=== PATIENT | female | born 2000 | race Caucasian/White ===

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

== ENCOUNTER 2018-05-23 20:47 | Emergency (ER) | payer MEDICAID | END 2018-05-23 22:57 | LOC: JD.ED 20:47 | DX: Z53.21 Procedure and treatment not carried out due to patient leaving prior to being seen by health care provider (principal) ==

== ENCOUNTER 2021-02-19 01:31 | Emergency (ER) | payer MEDICAID ==
[2021-02-19 01:44] VITALS: BP 109/64; PULSE 83
--- NOTE | 2021-02-19 02:32 | EDM.PDOC ---
ED HPI GENERAL MEDICAL PROBLEM - General Chief Complaint: ADMINISTRATIVE FELLOW Problem Stated Complaint: VAGINAL BLEEDING/17WEEK PREG Time Seen by Provider: 02/19/21 01:50 Source of Information: Reports: Patient History Limitations: Reports: No Limitations - History of Present Illness INITIAL COMMENTS - FREE TEXT/NARRATIVE: Patient is a 20-year-old female no significant past medical history presents with a chief complaint of vaginal bleeding. Patient states that she is approximately 17 weeks . She does have prior ADMINISTRATIVE FELLOW visits and care. States everything in the has been going well. About 1 hour ago, patient was watching TV when she went to the bathroom and had some vaginal bleeding. Patient states she passed several clots. Otherwise, she has minimal other symptoms. Denies any cramping or pain. Has been feeling nauseous during the entire but no vomiting tonight. Otherwise, patient feels well. Patient did have a miscarriage earlier this year around 8 weeks of her and is concerned that she might be having another one. - Related Data Allergies Allergy/AdvReac Type Severity Reaction Status Date / Time Penicillins Allergy Intermediate Rash Verified 02/19/21 01:44 latex Allergy Hives Verified 02/19/21 01:44 morphine AdvReac Headache Verified 02/19/21 01:44 Home Meds: Home Meds Ondansetron [Ondansetron ODT] 4 mg PO Q6H PRN 02/19/21 [History] Past Medical History HEENT History: Reports: Other (See Below) Other HEENT History: Glasses Cardiovascular History: Reports: None Respiratory History: Reports: Other (See Below) Other Respiratory History: seasonal allergies Gastrointestinal History: Reports: GERD Other Gastrointestinal History: acid reflux Genitourinary History: Reports: Other (See Below) Other Genitourinary History: UTI x 1 this ADMINISTRATIVE FELLOW History: Reports: Musculoskeletal History: Reports: Other (See Below) Other Musculoskeletal History: LBP Neurological History: Reports: Seizure Other Neuro History: seizure x 1 at 5 y.o. Psychiatric History: Reports: Anxiety Other Psychiatric History: Took medication prior to for both; not during , no current s/s of either per pt. Endocrine/Metabolic History: Reports: None Hematologic History: Reports: None Immunologic History: Reports: None Oncologic (Cancer) History: Reports: None Dermatologic History: Reports: Psoriasis Other Dermatologic History: arms and belly - Infectious Disease History Infectious Disease History: Reports: None - Past Surgical History Head Surgeries/Procedures: Reports: None HEENT Surgical History: Reports: Oral Surgery Cardiovascular Surgical History: Reports: None GI Surgical History: Reports: Appendectomy Female Surgical History: Reports: None Endocrine Surgical History: Reports: None Neurological Surgical History: Reports: None Musculoskeletal Surgical History: Reports: None Oncologic Surgical History: Reports: None Dermatological Surgical History: Reports: None Social & Family History - Family History Family Medical History: No Pertinent Family History - Tobacco Use Tobacco Use Status *Q: Never Tobacco User Second Hand Smoke Exposure: No - Caffeine Use Caffeine Use: Reports: Coffee - Recreational Drug Use Recreational Drug Use: No - Living Situation & Occupation Living situation: Reports: with Family Occupation: Student ED ROS GENERAL - Review of Systems Review Of Systems: See Below Free Text/Narrative/Comment: In addition to that documented in the HPI above, the additional ROS was obtained: Constitutional: Denies fevers or chills Eyes: Denies vision changes ENMT: Denies sore throat CV: Denies chest pain Resp: Denies SOB GI: Denies vomiting or diarrhea : Denies painful urination MSK: Denies recent trauma Skin: Denies new rashes Neuro: Denies new numbness or tingling or weakness Endocrine: Denies unexpected weight loss Heme: Denies bleeding disorders ED EXAM - Physical Exam Exam: See Below Text/Narrative:: I have reviewed the triage vital signs Const: Well nourished, well developed, appears stated age Eyes: Pupils Equal and reactive to light bilaterally, no conjunctival injection HENT: No signs of trauma or swelling, Neck supple without meningismus CV: Regular Rate Rhythm, Warm, well-perfused extremities RESP: Unlabored respiratory effort GI: Uterus palpated in the infraumbilical area. Soft, non-tender, non- distended, no masses MSK: No gross deformities appreciated Skin: Warm, dry. No rashes Neuro: Alert, activities manager II-XII grossly intact. Sensation and motor function of extremities grossly intact. Psych: Appropriate mood and affect. Bedside ultrasound demonstrates intrauterine fetus with activity. heart rate measures in the 90s. Otherwise, no obvious signs of hemorrhage or hematoma. Course - Vital Signs Last Recorded V/S: Last Vital Signs Temp 36.7 C 02/19/21 01:43 Pulse 83 02/19/21 01:43 Resp 18 02/19/21 01:43 BP 109/64 02/19/21 01:43 Pulse Ox 100 02/19/21 01:43 - Orders/Labs/Meds Labs: Laboratory Tests 02/19/21 02/19/21 02/19/21 Range/Units 02:00 02:00 02:06 WBC 9.09 (3.98-10.04) K/mm3 RBC 3.70 L (3.98-5.22) M/mm3 Hgb 11.0 L (11.2-15.7) gm/dl Hct 32.3 L (34.1-44.9) % MCV 87.3 (79.4-94.8) fl MCH 29.7 (25.6-32.2) pg MCHC 34.1 (32.2-35.5) g/dl RDW Std Deviation 41.9 (36.4-46.3) fL Plt Count 237 (182-369) K/mm3 MPV 10.3 (9.4-12.3) fl Neut % (Auto) 65.2 (34.0-71.1) % Lymph % (Auto) 24.1 (19.3-51.7) % Tate % (Auto) 7.0 (4.7-12.5) % Eos % (Auto) 3.1 (0.7-5.8) Baso % (Auto) 0.4 (0.1-1.2) % Neut # (Auto) 5.92 (1.56-6.13) K/mm3 Lymph # (Auto) 2.19 (1.18-3.74) K/mm3 Tate # (Auto) 0.64 H (0.24-0.36) K/mm3 Eos # (Auto) 0.28 (0.04-0.36) K/mm3 Baso # (Auto) 0.04 (0.01-0.08) K/mm3 Sodium 141 (136-145) mEq/L Potassium 3.9 (3.5-5.1) mEq/L Chloride 104 (98-107) mEq/L Carbon Dioxide 25 (21-32) mEq/L Anion Gap 15.9 H (5-15) BUN 10 (7-18) mg/dL Creatinine 0.6 (0.55-1.02) mg/dL Est Cr Clr Drug Dosing 132.34 mL/min Estimated GFR (MDRD) > 60 (>60) mL/min BUN/Creatinine Ratio 16.7 (14-18) Glucose 101 H (70-99) mg/dL Calcium 8.8 (8.5-10.1) mg/dL Total Bilirubin 0.5 (0.2-1.0) mg/dL AST 15 (15-37) U/L ALT 21 (14-59) U/L Alkaline Phosphatase 65 (46-116) U/L Total Protein 6.4 (6.4-8.2) g/dl Albumin 3.3 L (3.4-5.0) g/dl Globulin 3.1 gm/dL Albumin/Globulin Ratio 1.1 (1-2) Urine Color Yellow (Yellow) Urine Appearance Clear (Clear) Urine pH 7.0 (5.0-8.0) Ur Specific [place] 1.020 (1.005-1.030) Urine Protein Negative (Negative) Urine Glucose (UA) Negative (Negative) Urine Ketones Negative (Negative) Urine Occult Blood Negative (Negative) Urine Nitrite Negative (Negative) Urine Bilirubin Negative (Negative) Urine Urobilinogen 0.2 (0.2-1.0) Ur Leukocyte Esterase Trace H (Negative) Urine RBC 0-5 (0-5) /hpf Urine WBC 0-5 (0-5) /hpf Ur Squamous Epith Cells 5-10 H (0-5) /hpf Amorphous Sediment Few H (NOT SEEN) /hpf Urine Bacteria Few (FEW) /hpf Urine Mucus Not seen (FEW) /hpf Departure - Departure Time of Disposition: 02:51 Disposition: Home, Self-Care 01 Clinical Impression: Threatened - Discharge Information Instructions: Threatened Miscarriage, [id number] Referrals: Sandro Estevez MD [Primary Care Provider] - Forms: ED Department Discharge, ED Return to Work/School Form Additional Instructions: Please follow-up with your ADMINISTRATIVE FELLOW on Saturday. Avoid strenuous activity, sexual intercourse. Return to the emergency room should bleeding worsen or if you have any increased pain. Sepsis Event Note (ED) - Focused Exam Vital Signs: Vital Signs Temp Pulse Resp BP Pulse Ox 02/19/21 01:43 36.7 C 83 18 109/64 100 - Assessment/Plan Assessment:: Patient is a 20-year-old female presenting with scant vaginal bleeding and concerns about possible miscarriage. Patient hemodynamically stable on arrival and throughout emergency department course. She is otherwise well-appearing. Her ultrasound at bedside demonstrates activity but concerns about low fe solomon heart rate. Her laboratory studies are normal. At this point, patient has threatened and educator for pelvic rest and early follow-up with ADMINISTRATIVE FELLOW. Return precautions discussed as usual. Patient agrees with plan of care.
== END 2021-02-19 02:58 | disposition home or self-care (01) ==
LOC: JD.ED 01:31
DX: O20.0 Threatened abortion (principal); K21.9 Gastro-esophageal reflux disease without esophagitis; Z3A.17 17 weeks gestation of pregnancy; Z88.0 Allergy status to penicillin; Z88.5 Allergy status to narcotic agent
CPT/HCPCS: 36415; 80053; 81001; 85025; 99284

== ENCOUNTER 2021-07-15 09:11 | Inpatient (IN) | payer MEDICAID ==
[~2021-07-15 09:11] MED LIST: Bupivacaine 0.25% 10 ML SDV ONE
[2021-07-15] MEDS ORDERED: Nalbuphine HCl 10 MG/ 1ML Amp IVPUSH PRN (10:35)
[2021-07-15] MEDS ORDERED: Ondansetron 4 MG Tab.DIS PO PRN (10:35)
[2021-07-15] MEDS ORDERED: Sodium Chloride 0.9% 10 ML Syringe FLUSH PRN (10:35)
[2021-07-15] MEDS ORDERED: Oxytocin/Lactated Ringers 10 UNIT/1,000 ML BAG IV SCH ×2 (10:45)
[2021-07-15] MEDS: Lactated Ringers 1,000 ML IV SCH ×2 (12:33→13:53)
[2021-07-15] MEDS ORDERED: ePHEDrine 50 MG/ML SDV IVPUSH PRN (12:55)
[2021-07-15] MEDS ORDERED: diphenhydrAMINE 50 MG/ML SDV IVPUSH PRN (12:55)
[2021-07-15] MEDS ORDERED: fentaNYL 100 MCG/2 ML SDV EPIDUR PRN (12:55)
[2021-07-15] MEDS ORDERED: Bupivacaine/fentaNYL/NS 100 ML Bag EPIDUR PRN (12:55)
[2021-07-15] MEDS ORDERED: Witch Hazel Medicated Pads 40/Jar TOP PRN (19:15)
[2021-07-15] MEDS ORDERED: Docusate Sodium 100 MG Cap PO PRN (19:15)
[2021-07-15] MEDS ORDERED: Benzocaine/Menthol 20%-0.5% Spray 78 GM Cannister TOP PRN (19:15)
[2021-07-15] MEDS ORDERED: Sodium Chloride 0.9% 10 ML Syringe FLUSH SCH (21:00)
[2021-07-16] MEDS: Ibuprofen 600 MG Tab PO PRN ×3 (03:33→14:39)
[2021-07-16] MEDS: Acetaminophen 325 MG Tab PO PRN ×2 (06:30→17:34)
[2021-07-16] MEDS ORDERED: Prenatal Multivitamin with Calcium/Folic Acid/Iron Tab PO SCH (09:00)
[2021-07-16 15:08] VITALS: BP 108/64; PULSE 76
== END 2021-07-16 20:18 | disposition home or self-care (01) | DRG 807 ==
LOC: JD.OBCHECK 09:11 → JD.OB 09:15 → JD.OBCHECK 10:59 → JD.OB 10:59 → OBSVTOIN 18:56 → JD.OB 21:10
PROVIDERS: ADMIT Obstetrics & Gynecology; ATTEND Obstetrics & Gynecology
PROC: 10E0XZZ Delivery of Products of Conception, External Approach (ICD-10-PCS; principal; 2021-07-15)
PROC: 0KQM0ZZ Repair Perineum Muscle, Open Approach (ICD-10-PCS; 2021-07-15)
PROC: 10907ZC Drainage of Amniotic Fluid, Therapeutic from Products of Conception, Via Natural or Artificial Opening (ICD-10-PCS; 2021-07-15)
PROC: 3E0R3BZ Introduction of Anesthetic Agent into Spinal Canal, Percutaneous Approach (ICD-10-PCS; 2021-07-15)
DX: O70.1 Second degree perineal laceration during delivery (principal); Z37.0 Single live birth; Z3A.39 39 weeks gestation of pregnancy; Z87.891 Personal history of nicotine dependence
CPT/HCPCS: 36415; 51701; 59025; 59409; 85025; 86592; 86850; 86900; 86901; A9270-GY; J2590; J3010; J3490; J7120

== ENCOUNTER 2021-07-31 21:28 | Emergency (ER) | payer MEDICAID ==
[2021-07-31 22:07] VITALS: BP 114/90; PULSE 61
== END 2021-07-31 23:45 | disposition home or self-care (01) ==
LOC: JD.ED 21:28
DX: O72.2 Delayed and secondary postpartum hemorrhage (principal); F17.210 Nicotine dependence, cigarettes, uncomplicated; E66.9 Obesity, unspecified; Z68.30 Body mass index [BMI] 30.0-30.9, adult; Z90.49 Acquired absence of other specified parts of digestive tract; Z79.899 Other long term (current) drug therapy; Z88.0 Allergy status to penicillin; Z91.040 Latex allergy status; Z88.6 Allergy status to analgesic agent
CPT/HCPCS: 36415; 80053; 85025; 99284